=== PATIENT | male | born 1980 | race Caucasian/White ===

== ENCOUNTER 2017-07-04 09:08 | Emergency (ER) | payer BC, OTHER ==
[~2017-07-04] VITALS: Ht 190.5 cm; Wt 113.4 kg
[2017-07-04 09:15] VITALS: BP 140/95
[2017-07-04] MEDS ORDERED: SYNTHROID150 MCG PO (09:18)
[2017-07-04] MEDS ORDERED: HYDROCODONE-AP1 EAC6 PO (09:45)
== END 2017-07-04 09:57 | disposition home or self-care (01) ==
LOC: ER 09:08
DX: S92.811A Other fracture of right foot, initial encounter for closed fracture (principal); F17.210 Nicotine dependence, cigarettes, uncomplicated; Z88.0 Allergy status to penicillin; W22.01XA Walked into wall, initial encounter; Y93.89 Activity, other specified; Y92.89 Other specified places as the place of occurrence of the external cause; Y99.8 Other external cause status